=== PATIENT | female | born 1995 | race American Indian/Alaskan Native ===

== ENCOUNTER 2017-02-06 11:56 | Emergency (ER) | payer MEDICAID ==
[2017-02-06 12:10] VITALS: BP 122/65
[2017-02-06 13:00] LABS: Bacteria,Urine 1+ /HPF (Negative); Bilirubin,Urine NEG (Negative); Blood,Urine NEG (Negative); Ketones,Urine 80 mg/dL (Negative); Leukocyte Esterase,Urine SM (Negative); Mucus,Urine 3+ /HPF; Nitrite,Urine NEG (Negative)
[2017-02-06] MEDS ORDERED: NACL 0.9% 1000 ML 1,000 ML IV ONE ×2 (13:26→13:27)
--- NOTE | 2017-02-06 13:35 | Emergency Department Report ---
HPI - General Chief Complaint: Nausea/Vomiting/Diarrhea Time Seen by Provider: 02/06/17 13:26 - HPI HPI: This is a 21-year-old Afro-[place] female presents to the emergency department with complaint of some nausea and vomiting while . The patient is about 16 weeks based on her last menstrual cycle but has not yet seen her DATA SOLUTIONS ARCHITECT, [facility]. She's been having some nausea and has been "spitting up " over the past 2 weeks. Over the past 1-2 days she has been feeling dizzy and dehydrated. She otherwise denies any past medical history. She is not taken anything for symptoms prior to presentation. She thinks that the taste of water is also causing her to be unable to keep it down and she has had some Powerade today and has been able to keep that down this far. She denies any abdominal pain, pelvic pain, vaginal bleeding or discharge, dysuria, fever. ED Past Medical Hx - Past Medical History Hx Congestive Heart Failure: No Hx Diabetes: No Hx Asthma: No Hx COPD: No - Social History Smoking Status: Never Smoker Substance Use Type: None - Medications Home Medications: Home Medications Medication Instructions Recorded Confirmed Last Taken Type Vit No.130/Iron/FA 1 each PO QDAY #30 tablet 02/06/17 Unknown Rx [ Tablet] ED Review of Systems ROS: Stated complaint: 6-8 WKS PREG/DIZZY/DEHYDRATED Other details as noted in HPI Comment: All other systems reviewed and negative Constitutional: denies: chills, fever Eyes: denies: eye pain, eye discharge, vision change ENT: denies: ear pain, throat pain Respiratory: denies: cough, shortness of breath, wheezing Cardiovascular: denies: chest pain, palpitations Gastrointestinal: nausea, vomiting Genitourinary: denies: urgency, dysuria, discharge Musculoskeletal: denies: back pain, joint swelling, arthralgia Skin: denies: rash, lesions Neurological: other (dizzy). denies: headache, weakness, paresthesias Physical Exam - Physical Exam Vital Signs: Vital Signs 02/06/17 12:06 Temperature 98.5 F Pulse Rate 72 Respiratory 16 Rate Blood Pressure 122/65 O2 Sat by Pulse 100 Oximetry Physical Exam: GENERAL: The patient is well-developed well-nourished. HEENT: Normocephalic. Atraumatic. Extraocular motions are intact. Patient has moist mucous membranes. Pupils equal reactive to light laterally. NECK: Supple. Trachea is midline. CHEST/LUNGS: Clear to auscultation. There is no respiratory distress noted. HEART/CARDIOVASCULAR: Regular. There is no tachycardia. There is no gallop rub or murmur. ABDOMEN: Abdomen is soft, nontender. Patient has normal bowel sounds. There is no abdominal distention. SKIN: Skin is warm and dry. NEURO: The patient is awake, alert, and oriented. The patient is cooperative. The patient has no focal neurologic deficits. The patient has normal speech. MUSCULOSKELETAL: There is no tenderness or deformity. There is no limitation range of motion. There is no evidence of acute injury. ED Course Vital Signs 02/06/17 12:06 Temperature 98.5 F Pulse Rate 72 Respiratory 16 Rate Blood Pressure 122/65 O2 Sat by Pulse 100 Oximetry ED Medical Decision Making - Lab Data Result diagrams: 02/06/17 13:41 02/06/17 13:41 - Medical Decision Making 21-year-old female presents to the emergency department with a two-week history of spitting up which she describes as nausea and vomiting and more recently some dizziness and dehydration. She has about 6-8 weeks based on her last menstrual cycle. As the patient does not have any abdominal pain, back pain, vaginal bleeding or any other genitourinary signs, I did not feel that we needed to do a ultrasound at this time. It is too early for heart tones. Vital signs stable throughout her ED course. Her labs are mostly unremarkable. There was tender BCs and the urine but there is also 9 epithelial cells and the patient does not have any complaints of dysuria and it is low likelihood that the patient has a UTI. She was able to keep down some power aid but she did have 80 ketones in the urine so she was given 2 units of IV fluid. Upon reevaluation she is feeling greatly improved. No focal, motor or sensory deficits. Cranial nerves are intact. She was able to keep down crackers. She was encouraged to follow-up with [facility] SOLUTIONS ARCHITECT in the next few days and return to the ER with any worsening of her symptoms or any acute distress. - Differential Diagnosis , hyperemesis gravidarum, food poisoning, viral syndrome Critical Care Time: No Critical care attestation.: If time is entered above; I have spent that time in minutes in the direct care of this critically ill patient, excluding procedure time. ED Disposition Clinical Impression: Hyperemesis gravidarum, Dehydration Qualifiers: Weeks of gestation: less than 8 weeks Qualified Code(s): Z3A.01 - Less than 8 weeks gestation of Disposition: - TO HOME OR SELFCARE Is pt being admited?: No Condition: Stable Instructions: (ED), Hyperemesis Gravidarum (ED), Dehydration (ED) Additional Instructions: Please follow-up with your DATA SOLUTIONS ARCHITECT in the next few days. Increase your oral rehydration. Return to the emergency department with any worsening of your symptoms, vaginal bleeding, abdominal discomfort, or any acute distress. Prescriptions: Vit No.130/Iron/FA [ Tablet] 1 each PO QDAY #30 tablet Referrals: [facility] [Primary Care Provider] - 3-5 Days [facility] [Provider Group] - 3-5 Days Time of Disposition: 15:05
[2017-02-06 14:09] LABS: Eosinophils % (Auto) 1.7 % (0.0-4.3); Hematocrit 35.4 % (30.3-42.9); Hemoglobin 11.7 gm/dl (10.1-14.3); Mean Corpuscular HGB Conc 33 % (30-34); Mean Corpuscular Hemoglobin 30 pg (28-32); Mean Corpuscular Volume 91 fl (79-97); Platelet Count 200 K/mm3 (140-440); Red Blood Count 3.87 M/mm3 (3.65-5.03); Red Cell Distribution Width 15.9 % (13.2-15.2); White Blood Count 7.8 K/mm3 (4.5-11.0)
[2017-02-06 14:14] LABS: Anion Gap 18 mmol/L; Blood Urea Nitrogen 11 mg/dL (7-17); Carbon Dioxide 24 mmol/L (22-30); Chloride 98.1 mmol/L (98-107); Glucose 91 mg/dL (65-100); Potassium 3.6 mmol/L (3.6-5.0); Sodium 136 mmol/L (137-145)
[2017-02-06] MEDS ORDERED: MACROBID PO ONE (15:00)
== END 2017-02-06 15:29 | disposition home or self-care (01) ==
LOC: ED 11:56
DX: O21.0 Mild hyperemesis gravidarum (principal); O26.891 Other specified pregnancy related conditions, first trimester; E86.0 Dehydration; Z3A.01 Less than 8 weeks gestation of pregnancy
CPT/HCPCS: 36415; 80048; 81001; 81025; 85025; 96360; 99283; J7030

== ENCOUNTER 2017-05-30 05:49 | Inpatient (IN) | payer MEDICAID ==
[2017-05-30] MEDS ORDERED: LACTATED RINGERS 1,000 ML ONE (06:22)
[2017-05-30] MEDS ORDERED: LACTATED RINGERS 1,000 ML IV ONE (06:43)
[2017-05-30 07:01] LABS: Bilirubin,Urine NEG (Negative); Blood,Urine SM (Negative); Ketones,Urine 80 mg/dL (Negative); Leukocyte Esterase,Urine NEG (Negative); Mucus,Urine 3+ /HPF; Nitrite,Urine NEG (Negative)
[2017-05-30] MEDS ORDERED: TYLENOL PO PRN ×2 (07:49→08:02)
[2017-05-30 07:52] LABS: Hematocrit 29.1 % (30.3-42.9); Hemoglobin 9.4 gm/dl (10.1-14.3); Mean Corpuscular HGB Conc 32 % (30-34); Mean Corpuscular Hemoglobin 30 pg (28-32); Mean Corpuscular Volume 92 fl (79-97); Platelet Count 261 K/mm3 (140-440); Red Blood Count 3.15 M/mm3 (3.65-5.03); Red Cell Distribution Width 13.5 % (13.2-15.2)
--- NOTE | 2017-05-30 07:55 | History and Physical Report ---
History of Present Illness Date of examination: 05/30/17 Chief complaint: Fever and chills Painful contractions History of present illness: 21-year-old at 24+ weeks presents with above complaints and issues, she is a [facility] patient. Essential history appears to be patient with painful contractions for 3-4 weeks. She went to [place] [facility] last night she was worked up per patient, she had ultrasounds and lab tests. She was discharged after being informed she was not in labor. She presents here with similar complaints but now has fever, cough, and tachycardia. Patient claims she did not inform them these other complaints at [place]. In triage, her temp is 102 and tachycardia to 102. 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 denies: smoking, alcohol abuse, prescription drug abuse, IV drug use - Obstetrical History Expected Date of Delivery: 09/13/17 Actual Gestation: 24 Week(s) 6 Day(s) : 2 Para: 1 Hx # Term Pregnancies: 0 Number of Pregnancies: 1 Medications and Allergies Allergies Allergy/AdvReac Type Severity Reaction Status Date / Time No Known Allergies Allergy Verified 02/06/17 12:05 Home Medications Medication Instructions Recorded Confirmed Last Taken Type Vit No.130/Iron/Folic 1 each PO QDAY #30 tablet 02/06/17 Unknown Rx [ Tablet] Review of Systems Constitutional: fever, chills, weakness, malaise, lethargy, no weight gain, no night sweats, no chronic headaches Eyes: no blurred vision, no diplopia, no photophobia Cardiovascular: no chest pain, no orthopnea, no syncope, no lightheadedness, no shortness of breath, no dyspnea on exertion, no paroxysmal nocturnal dyspnea, no high blood pressure Respiratory: cough Gastrointestinal: no nausea, no vomiting Genitourinary: contractions, no vaginal bleeding, no leakage of fluid - Vital Signs Vital signs: Vital Signs Pulse BP 92 H 142/60 05/30/17 06:12 05/30/17 06:12 Temp Pulse Resp BP Pulse Ox 102.4 F H 92 H 20 142/60 05/30/17 07:23 05/30/17 06:29 05/30/17 07:23 05/30/17 06:29 - Physical Exam Cardiovascular: Regular rate, Normal S1, Normal S2 Lungs: Positive: Clear to auscultation, Normal air movement Abdomen: Positive: normal appearance, soft, tenderness (mild tenderness at left lower quadrant, no CVA tenderness). Negative: distention, guarding, mass Genitourinary (Female): Positive: normal external genitalia (by CNM) Uterus: Positive: enlarged. Negative: tender Adnexa: both: normal - Obstetrical FHR: category 2 ( tachycardia) Cervical Dilatation: 1 Results Result Diagrams: 05/30/17 07:40 05/30/17 07:40 All other labs normal. Assessment and Plan A: 21-year-old at 24+6 weeks with fever -Cat 1 tracing Issues -Fever and cough ?Flu - tachycardia -Hx of PTD (Non compliant w/ [facility] visits) -Recent w/u at [facility] per patient P: -Admit -Patient was seen at [place] [facility] last night -Start magnesium per protocol, Hold steroids for now until obtain records from [facility] -If records not available, we'll obtain workup including cervical length here -She gives an oral history of her daughter being sick for the past week, she did not get flu vaccine. Start Tamiflu at this time. Hold antibiotics for now, await culture -Continue antipyretics -Consult placed to [facility] for history of delivery -Contact precautions for now - Patient Problems (1) 24 weeks gestation of Current Visit: Yes Status: Acute (2) tachycardia Current Visit: Yes Status: Acute (3) Maternal pyrexia, antepartum Current Visit: Yes Status: Acute (4) Hx of delivery, currently Current Visit: Yes Status: Acute
[2017-05-30] MEDS: TYLENOL PO PRN ×2 (07:59→20:04)
[2017-05-30] MEDS ORDERED: SENOKOT S PO PRN (08:02)
[2017-05-30] MEDS ORDERED: TUCKS PAD TP PRN (08:02)
[2017-05-30] MEDS ORDERED: MYLICON PO PRN (08:02)
[2017-05-30] MEDS ORDERED: DEEP SEA NS PRN (08:02)
[2017-05-30] MEDS ORDERED: COLACE PO PRN (08:02)
[2017-05-30 08:06] LABS: Alanine Aminotransferase 6 units/L (7-56); Albumin 2.8 g/dL (3.9-5); Albumin/Globulin Ratio 0.9 %; Alkaline Phosphatase 94 units/L (35-129); Anion Gap 18 mmol/L; BUN/Creatinine Ratio 15; Blood Urea Nitrogen 6 mg/dL (7-17); Calcium 7.8 mg/dL (8.4-10.2); Carbon Dioxide 22 mmol/L (22-30); Chloride 96.9 mmol/L (98-107); Glucose 79 mg/dL (65-100); Potassium 3.1 mmol/L (3.6-5.0); Sodium 134 mmol/L (137-145); Total Protein 5.8 g/dL (6.3-8.2)
[2017-05-30] MEDS ORDERED: MAGNESIUM SULFATE 4GM/100ML 4 GM/100 ML BAG IV ONE (08:07)
[2017-05-30 08:08] LABS: White Blood Count 20.2 K/mm3 (4.5-11.0)
[2017-05-30 08:10] LABS: Urine Drugs of Abuse Note Disclamer
--- NOTE | 2017-05-30 08:24 | Event Note ---
Date: 05/30/17 Despite call to [facility], unable to obtain records of workup as it appears all Departments closed. Plan at this point is to repeat all testing including ultrasounds and lab workup.
--- NOTE | 2017-05-30 08:31 | Event Note ---
Date: 05/30/17 Just spoke with [employer] intern physician at [phone]. She was seen at their facility. She had ultrasound including cervical length which was ~ 3.0, she had a fibronectin which was negative and SHANTHI of 16. She has graciously agreed to fax all results to me. Plan at this point is to discontinue present orders.
[2017-05-30] MEDS: LACTATED RINGERS 1,000 ML IV SCH ×2 (08:41→13:02)
[2017-05-30] MEDS ORDERED: MAGNESIUM SULFATE 40GM/1000ML 40 GM/1,000 ML BAG IV NR (09:00)
[2017-05-30] MEDS ORDERED: LACTATED RINGERS 1,000 ML IV SCH (09:00)
[2017-05-30 09:10] LABS: Blastocytes % (Manual) 0 %
[2017-05-30 09:11] LABS: Basophils % (Manual) 0 % (0.0-1.8); Diff Status Complete; Eosinophils % (Manual) 0 % (0.0-4.3); RBC Morphology Normal
[2017-05-30] MEDS: TAMIFLU PO SCH ×2 (09:39→22:44)
--- NOTE | 2017-05-30 11:15 | Consultation ---
History of Present Illness Consult date: 05/30/17 Requesting physician: ASHLEIGH CARTWRIGHT Reason for consult: contractions History of present illness: Thank you for the consultation. As you are aware, this is a 21 year-old para 0111 at 24 weeks 4 days gestation for whom a perinatology consultation was requested for fever of unknown etiology. CURRENT PRESENTATION: The patient indicates that she noted fever, chills, body aches and a mild headache of unknown etiology earlier yesterday. She also admits to cough or body aches. The patient did not the influenza vaccine. She denies vaginal bleeding or leakage of fluid. She describes No contractions. Uterine tenderness was not appreciated on exam. She denied contractions or vaginal bleeding. tachycardia was noted on ultrasound which has resolved. Patient had fever and contractions on presentation which have resolved. PAST OBSTETRICAL HISTORY * SAB x 1 * 2015: at 35 weeks. BW: 5 pounds 6 oz * See reports in patients chart. PAST MEDICAL HISTORY * Patient denies hypertension, diabetes or asthma. PAST SURGICAL HISTORY Negative PHYSICAL EXAMINATION: See complete documentation in patients medical record. CURRENT TEMPERATURE: 98.9 Abdomen soft, non-tender and non-distended. NO rebound Fundal height consistent with 24 weeks gestation NST Reactive, 160 - 180 BPM, minimal decelerations, mild contractions ADMISSION LAB TESTS: See notes in patients chart. FFN test. Negative. [facility] ULTRASOUND: See notes in patients chart * Pending. 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: chlamydia, gonorrhea, hepatitis B, hepatitis C, HIV, syphilis - Obstetrical History : 2 Medications and Allergies Allergies Allergy/AdvReac Type Severity Reaction Status Date / Time No Known Allergies Allergy Verified 02/06/17 12:05 Home Medications Medication Instructions Recorded Confirmed Last Taken Type Vit No.130/Iron/Folic 1 each PO QDAY #30 tablet 02/06/17 Unknown Rx [ Tablet] Active Meds: Active Medications Acetaminophen (Tylenol) 1,000 mg PO Q4H PRN PRN Reason: Pain, Mild (1-3) Last Admin: 05/30/17 07:59 Dose: 1,000 mg Acetaminophen (Tylenol) 650 mg PO Q4H PRN PRN Reason: Pain MILD(1-3)/Fever >100.5/PANCHAL Docusate Sodium (Colace) 100 mg PO Q12H PRN PRN Reason: Constipation Lactated Ringer's (Lactated Ringers) 1,000 mls @ 125 mls/hr IV DIRECT MARA Last Admin: 05/30/17 08:41 Dose: 125 mls/hr Lactated Ringer's (Lactated Ringers) 1,000 mls @ 75 mls/hr IV DIRECT MARA Magnesium Sulfate (Magnesium Sulfate 40gm/1000ml) 40 gm in 1,000 mls @ 50 mls/ hr IV TITR NR PRN Reason: 2 GM/HR Stop: 05/30/17 23:00 Last Admin: 05/30/17 08:56 Dose: 2 gm/hr, 50 mls/hr Multivitamins/Iron/Calcium ( Vitamin) 1 each PO QDAY MARA Ondansetron HCl (Zofran) 4 mg IV Q6H PRN PRN Reason: Nausea And Vomiting Oseltamivir Phosphate (Tamiflu) 75 mg PO BID MARA Stop: 06/03/17 22:01 Last Admin: 05/30/17 09:39 Dose: 75 mg Senna/Docusate Sodium (Senokot S) 2 tab PO Q12H PRN PRN Reason: Laxative Effect Simethicone (Mylicon) 80 mg PO Q6H PRN PRN Reason: Gas pain Sodium Chloride (Deep Sea) 2 spray NS Q4H PRN PRN Reason: Congestion Witch Destiny/Glycerin (Tucks Pad) 1 each TP PRN PRN PRN Reason: Hemorrhoids - Vital Signs Vital signs: Vital Signs Pulse BP 92 H 142/60 05/30/17 06:12 05/30/17 06:12 Temp Pulse Resp BP Pulse Ox 98.6 F 92 H 18 109/53 98 05/30/17 11:03 05/30/17 11:14 05/30/17 11:03 05/30/17 10:59 05/30/17 11:14 Results Result Diagrams: 05/30/17 07:40 05/30/17 07:40 Abnormal lab results 05/30/17 05/30/17 Range/Units 07:40 07:40 WBC 20.2 H (4.5-11.0) K/mm3 RBC 3.15 L (3.65-5.03) M/mm3 Hgb 9.4 L (10.1-14.3) gm/dl Hct 29.1 L (30.3-42.9) % Seg Neuts % (Manual) 94.0 H (40.0-70.0) % Lymphocytes % (Manual) 2.0 L (13.4-35.0) % Seg Neutrophils # Man 19.0 H (1.8-7.7) K/mm3 Lymphocytes # (Manual) 0.4 L (1.2-5.4) K/mm3 Sodium 134 L (137-145) mmol/L Potassium 3.1 L (3.6-5.0) mmol/L Chloride 96.9 L (98-107) mmol/L BUN 6 L (7-17) mg/dL Creatinine 0.4 L (0.7-1.2) mg/dL Calcium 7.8 L (8.4-10.2) mg/dL ALT 6 L (7-56) units/L Total Protein 5.8 L (6.3-8.2) g/dL Albumin 2.8 L (3.9-5) g/dL All other labs normal. Assessment and Plan ASSESSMENT * This is a 21 year old para 0111 at 24+ weeks noted to have fever of unknown etiology, contractions and transient fever. * Headache, Body ache and Chills of unknown etiology possibly due to influenza. * Rule out labor. * Doubt chorioamnionitis. * tachycardia due to maternal fever. Category 1 tracing * Rule out pneumonia vs. Viral syndrome (influenza) SUGGESTED MANAGEMENT PLAN * Agree with initial admission and observation as necessary. * Obtain a CXR to rule out pulmonary edema vs pericarditis. * Agree with Oseltamivir (Tamiflu) at a dosage of 75 mg~twice~daily x 5 days. * Obtain an ultrasound evaluated growth and SHANTHI. * Consider infectious disease consultation (if indicated). * Obtain an echocardiogram to evaluate history of cardiomyopathy. * No clear indication for amniocentesis given current clinical findings. * Agree with flu swab (pending). * Follow-up CBC and blood culture. * Biophysical profile is within normal limits. * Continue FHR monitoring to evaluate course of tachycardia. * Delivery for obstetrical indications or progressive labor. * Tylenol PRN. * Agree with Oseltamivir (Tamiflu) at a dosage of 75 mg~twice~daily x 5 days. * Agree with maintenance of intravenous access for maternal hydration while hospitalized. Thank you for allowing us to participate in the care of this patient. We look forward to the opportunity to assist in her continued management. If you have any questions, I may be reached at [phone].
--- NOTE | 2017-05-30 14:20 | Ultrasound Report ---
COMPLETE OB ULTRASOUND: labor. Gestation: [place] Position: Cephalic SHANTHI = 16.4 cm Placenta: Posterior Placental Grade: 1 Heart Rate: 141 BPM Cervical length: 3 cm (Normal > 3 cm) NEUROANATOMY VISUALIZED: Choroid Plexus Cisterna Magnum Cerebellum Lateral Ventricle ANATOMY VISUALIZED: Stomach Kidneys Bladder Diaphragm 4 Chamber Heart Heart 3 Vessel Cord Abd. Cord Insert SPINE VISUALIZED: Longitudinal Transverse Limited spine due to position The following are not demonstrated due to maternal body habitus or lie: AP spine BPD: 6.2 cm = 25 w 2 d HC: 22.9 cm = 25 w 0 d AC: 19.4 cm = 24 w 1 d FL: 4.6 cm = 25 w 2 d HC/AC Ratio: 1.2 Cephalic Index: 79.9 Estimated Weight: 725 grams Clinical age = 24 w 6 d EDC: 09/13/17 US Gest. Age = 25 w 0 d EDC: 09/12/17
--- NOTE | 2017-05-30 14:21 | Ultrasound Report ---
BIOPHYSICAL PROFILE: Premature labor. 2 - breathing movements 2 - movements 2 - posture and tone 2 - Qualitative amniotic fluid volume 8 - TOTAL SCORE OF POSSIBLE 8 Heart Rate (bpm) 138 Estimated age 24 weeks 6 days.
--- NOTE | 2017-05-30 14:49 | XRay Report ---
PORTABLE CHEST: SOB An AP portable view of the chest demonstrates a normal cardiac contour considering the limits of this technique. The lungs are clear with no evidence of infiltrate, fluid or failure. IMPRESSION: Normal portable chest.
--- NOTE | 2017-05-30 15:28 | Event Note ---
Date: 05/30/17 Saw patient in triage around 7:00 AM this morning as nurse states patient is having contractions at 24 weeks, 6 days gestation. Patient states she has been having contractions for several days. Patient states she was seen at [place] last night and was discharged because she was not in labor. She was checked and had a transvaginal US done at [place] last night. On exam this AM, cervix was 1/50/high/posterior. No vaginal bleeding or leaking of fluid seen. Patient reported chills and body aches and cough. She states her child has had similar symptoms. She states she vomited a few times a few days ago. No diarrhea. Due to fever, chills, and contractions, labs and IV fluid bolus ordered and Dr. Bryan notified to come and see the patient.
[2017-05-30] MEDS: ZOFRAN IV PRN (19:27)
--- NOTE | 2017-05-31 09:32 | Progress Note ---
Assessment and Plan A: 21-year-old at 25 weeks with fever now resolved -Cat 1 tracing Issues -Fever and cough ?Flu -Last temp spike 102.4 at 07:30 on 05/30/17 - tachycardia - resolved -Hx of PTD (Non compliant w/ [facility] visits) -BPP 02/11 on 05/30/17 P: -MFM notes reviewed, thanks -Continue present care -Await culture results -Possible discharge in ~ 24-48 - Patient Problems (1) 25 weeks gestation of Current Visit: Yes Status: Acute (2) 24 weeks gestation of Current Visit: Yes Status: Inactive (3) tachycardia Current Visit: Yes Status: Acute (4) Maternal pyrexia, antepartum Current Visit: Yes Status: Acute (5) Hx of delivery, currently Current Visit: Yes Status: Acute Subjective - Subjective Date of service: 05/31/17 Principal diagnosis: IUP @ 25 wks, Fever susp viral syndrome Interval history: Patient seen and examined, doing well. No issues overnight. She is lying supine in bed with her boyfriend appears in no distress. No other complaints She has been afebrile since ~ 7:30 AM yesterday No vaginal bleeding, no loss of fluid plus movement tracing now category 1 Patient reports: new complaints, movement normal, no loss of fluid, no vaginal bleeding, no contractions Objective - Vital Signs Vital Signs: Vital Signs - 12hr 05/30/17 05/30/17 05/30/17 21:32 21:37 21:42 Temperature Pulse Rate 84 83 83 Respiratory Rate Blood Pressure Blood Pressure [Left] O2 Sat by Pulse 99 98 99 Oximetry 05/30/17 05/30/17 05/30/17 21:47 22:40 22:45 Temperature Pulse Rate 78 88 80 Respiratory Rate Blood Pressure Blood Pressure [Left] O2 Sat by Pulse 98 99 98 Oximetry 05/31/17 05/31/17 05/31/17 00:20 01:19 02:19 Temperature Pulse Rate 75 75 75 Respiratory Rate Blood Pressure 91/48 104/51 98/51 Blood Pressure [Left] O2 Sat by Pulse Oximetry 05/31/17 05/31/17 05/31/17 03:19 04:19 05:19 Temperature Pulse Rate 73 78 74 Respiratory Rate Blood Pressure 94/51 91/50 97/53 Blood Pressure [Left] O2 Sat by Pulse Oximetry 05/31/17 05/31/17 05/31/17 05:45 08:46 08:47 Temperature 97.3 F L 98.1 F Pulse Rate 82 82 Respiratory 16 16 Rate Blood Pressure 103/58 Blood Pressure 103/58 [Left] O2 Sat by Pulse 99 Oximetry 05/31/17 05/31/17 05/31/17 08:54 08:59 09:04 Temperature Pulse Rate 83 85 86 Respiratory Rate Blood Pressure Blood Pressure [Left] O2 Sat by Pulse 98 98 97 Oximetry 05/31/17 05/31/17 05/31/17 09:09 09:14 09:19 Temperature Pulse Rate 83 90 85 Respiratory Rate Blood Pressure Blood Pressure [Left] O2 Sat by Pulse 99 99 98 Oximetry - Exam Abdomen: Absent: tenderness Uterus: Absent: tenderness FHR: category 1 - Labs Labs: Abnormal Labs 05/30/17 05/30/17 05/30/17 07:40 07:40 12:35 WBC 20.2 H RBC 3.15 L Hgb 9.4 L Hct 29.1 L Seg Neuts % (Manual) 94.0 H Lymphocytes % (Manual) 2.0 L Seg Neutrophils # Man 19.0 H Lymphocytes # (Manual) 0.4 L Sodium 134 L Potassium 3.1 L Chloride 96.9 L BUN 6 L Creatinine 0.4 L Calcium 7.8 L Magnesium 4.30 H ALT 6 L Total Protein 5.8 L Albumin 2.8 L 05/30/17 05/31/17 19:02 00:32 WBC RBC Hgb Hct Seg Neuts % (Manual) Lymphocytes % (Manual) Seg Neutrophils # Man Lymphocytes # (Manual) Sodium Potassium Chloride BUN Creatinine Calcium Magnesium 5.20 H 5.20 H ALT Total Protein Albumin Laboratory Results - last 24 hr 05/30/17 05/30/17 05/30/17 09:18 12:35 19:02 Magnesium 4.30 H 5.20 H Blood Type O POSITIVE Antibody Screen Negative 05/31/17 00:32 Magnesium 5.20 H Blood Type Antibody Screen
[2017-05-31] MEDS: PRENATAL VITAMIN PO SCH (09:59)
[2017-05-31] MEDS: TAMIFLU PO SCH ×2 (09:59→22:05)
[2017-05-31 10:11] LABS: Hematocrit 29.3 % (30.3-42.9); Hemoglobin 9.9 gm/dl (10.1-14.3); Mean Corpuscular HGB Conc 34 % (30-34); Mean Corpuscular Hemoglobin 31 pg (28-32); Mean Corpuscular Volume 93 fl (79-97); Platelet Count 292 K/mm3 (140-440); Red Blood Count 3.16 M/mm3 (3.65-5.03); Red Cell Distribution Width 13.2 % (13.2-15.2)
[2017-05-31] MEDS: ZOFRAN IV PRN (17:01)
[2017-05-31] MEDS: TYLENOL PO PRN (20:15)
[2017-06-01 07:35] VITALS: BP 109/65
--- NOTE | 2017-06-01 09:22 | Progress Note ---
Assessment and Plan A: 21-year-old at 25+1 weeks with fever now resolved -Cat 1 tracing\ -Urine culture negative for growth per Lab this AM Issues -Fever and cough ?Flu -Last temp spike 102.4 at 07:30 on 05/30/17 - tachycardia - resolved -Hx of PTD (Non compliant w/ [facility] visits) -BPP 8/8 on 05/30/17 P: -Discharged home -Advised to complete Tamiflu -Follow up with MFM as recommended - Patient Problems (1) 25 weeks gestation of Current Visit: Yes Status: Acute (2) tachycardia Current Visit: Yes Status: Acute (3) Maternal pyrexia, antepartum Current Visit: Yes Status: Acute (4) Hx of delivery, currently Current Visit: Yes Status: Acute Subjective - Subjective Date of service: 06/01/17 Principal diagnosis: IUP @ 25+1 wks, Fever susp viral syndrome Interval history: Patient seen and examined, doing well. No issues overnight. No other complaints She has been afebrile x ~ 48hrs No vaginal bleeding, no loss of fluid plus movement tracing now category 1 Patient reports: new complaints, movement normal, no loss of fluid, no vaginal bleeding, no contractions Objective - Vital Signs Vital Signs: Vital Signs - 12hr 05/31/17 05/31/17 05/31/17 21:37 21:42 21:47 Temperature Pulse Rate 85 75 80 Respiratory Rate Blood Pressure Blood Pressure [Left] O2 Sat by Pulse 98 98 98 Oximetry 05/31/17 05/31/17 05/31/17 21:52 21:57 22:02 Temperature Pulse Rate 76 75 80 Respiratory Rate Blood Pressure Blood Pressure [Left] O2 Sat by Pulse 98 97 99 Oximetry 05/31/17 05/31/17 05/31/17 22:07 22:12 22:17 Temperature Pulse Rate 72 95 H 71 Respiratory Rate Blood Pressure Blood Pressure [Left] O2 Sat by Pulse 99 98 99 Oximetry 05/31/17 05/31/17 05/31/17 22:22 22:27 22:32 Temperature Pulse Rate 71 69 67 Respiratory Rate Blood Pressure Blood Pressure [Left] O2 Sat by Pulse 98 99 98 Oximetry 05/31/17 05/31/17 05/31/17 22:37 22:42 22:47 Temperature Pulse Rate 89 83 71 Respiratory Rate Blood Pressure Blood Pressure [Left] O2 Sat by Pulse 99 97 98 Oximetry 05/31/17 05/31/17 05/31/17 23:29 23:34 23:39 Temperature Pulse Rate 63 69 74 Respiratory Rate Blood Pressure Blood Pressure [Left] O2 Sat by Pulse 95 98 97 Oximetry 05/31/17 05/31/17 05/31/17 23:44 23:49 23:54 Temperature Pulse Rate 83 74 85 Respiratory Rate Blood Pressure Blood Pressure [Left] O2 Sat by Pulse 97 97 97 Oximetry 05/31/17 06/01/17 06/01/17 23:59 00:04 00:09 Temperature Pulse Rate 76 70 73 Respiratory Rate Blood Pressure Blood Pressure [Left] O2 Sat by Pulse 96 98 98 Oximetry 06/01/17 06/01/17 06/01/17 00:14 00:19 00:24 Temperature Pulse Rate 73 73 74 Respiratory Rate Blood Pressure Blood Pressure [Left] O2 Sat by Pulse 98 97 97 Oximetry 06/01/17 06/01/17 06/01/17 00:29 00:34 07:33 Temperature 97.3 F L Pulse Rate 72 74 73 Respiratory 20 Rate Blood Pressure Blood Pressure 109/65 [Left] O2 Sat by Pulse 97 97 98 Oximetry 06/01/17 06/01/17 06/01/17 07:37 07:41 07:43 Temperature Pulse Rate 78 69 82 Respiratory Rate Blood Pressure 109/65 Blood Pressure [Left] O2 Sat by Pulse 100 99 94 Oximetry 06/01/17 06/01/17 06/01/17 07:47 07:52 07:57 Temperature Pulse Rate 81 76 77 Respiratory Rate Blood Pressure Blood Pressure [Left] O2 Sat by Pulse 100 99 99 Oximetry - Exam Abdomen: Present: normal appearance, soft. Absent: distention, tenderness, guarding, rigidity Uterus: Absent: tenderness - Labs Labs: Abnormal Labs 05/30/17 05/30/17 05/30/17 07:40 07:40 12:35 WBC 20.2 H RBC 3.15 L Hgb 9.4 L Hct 29.1 L Seg Neuts % (Manual) 94.0 H Lymphocytes % (Manual) 2.0 L Seg Neutrophils # Man 19.0 H Lymphocytes # (Manual) 0.4 L Sodium 134 L Potassium 3.1 L Chloride 96.9 L BUN 6 L Creatinine 0.4 L Calcium 7.8 L Magnesium 4.30 H ALT 6 L Total Protein 5.8 L Albumin 2.8 L 05/30/17 05/31/17 05/31/17 19:02 00:32 09:49 WBC 20.0 H RBC 3.16 L Hgb 9.9 L Hct 29.3 L Seg Neuts % (Manual) Lymphocytes % (Manual) Seg Neutrophils # Man Lymphocytes # (Manual) Sodium Potassium Chloride BUN Creatinine Calcium Magnesium 5.20 H 5.20 H ALT Total Protein Albumin Laboratory Results - last 24 hr 05/31/17 09:49 WBC 20.0 H RBC 3.16 L Hgb 9.9 L Hct 29.3 L MCV 93 MCH 31 MCHC 34 RDW 13.2 Plt Count 292
--- NOTE | 2017-06-01 09:26 | Discharge Summary ---
Providers - Providers Date of Admission: 05/30/17 08:03 Date of discharge: 06/01/17 Attending physician: RUDY OLMEDO MD 05/30/17 08:02 Consult to Physician [CONS] Routine Consulting Provider: RIO BAI I Reason For Exam: 24 weeks with flu like symptoms, r/o PTL Place consult to:: MEG Notified:: HANG AT ANSWERING SERVICE Phone number called:: [phone] Was contact made?: Yes If yes, spoke with:: HANG Time called:: 08:30 Primary care physician: RUDY OLMEDO MD Hospitalization Reason for admission: IUP - , other (viral syndrome) Discharge diagnosis: other (IUP at 25+1 weeks with viral syndrome) Hospital course: 21-year-old admitted at 24+6 weeks with fever, chills, cough and painful contractions. she is a [facility] patient. Essential history appears to be patient with painful contractions for 3-4 weeks. She went to [place] last night she was worked up per patient, she had ultrasounds and lab tests. She was discharged after being informed she was not in labor. She presents here with similar complaints but now has fever, cough, and tachycardia. Patient claims she did not inform them of these other complaints at [place]. In triage, her temp is 102 and tachycardia to 102. She was checked by the public employment mediator and is said to be 1 cm Spoke with [place] manager internal physician at [phone]. She was seen at their facility. She had ultrasound including cervical length which was ~ 3.0, she had a fibronectin which was negative and SHANTHI of 16. She was admitted to the floor, cultures are obtained. She was started on Tamiflu; MFM consult requested MFM consult below: ASSESSMENT * This is a 21 year old para 0111 at 24+ weeks noted to have fever of unknown etiology, contractions and transient fever. * Headache, Body ache and Chills of unknown etiology possibly due to influenza. * Rule out labor. * Doubt chorioamnionitis. * tachycardia due to maternal fever. Category 1 tracing * Rule out pneumonia vs. Viral syndrome (influenza) SUGGESTED MANAGEMENT PLAN * Agree with initial admission and observation as necessary. * Obtain a CXR to rule out pulmonary edema vs pericarditis. * Agree with Oseltamivir (Tamiflu) at a dosage of 75 mg~twice~daily x 5 days. * Obtain an ultrasound evaluated growth and SHANTHI. * Consider infectious disease consultation (if indicated). * Obtain an echocardiogram to evaluate history of cardiomyopathy. * No clear indication for amniocentesis given current clinical findings. * Agree with flu swab (pending). * Follow-up CBC and blood culture. * Biophysical profile is within normal limits. * Continue FHR monitoring to evaluate course of tachycardia. * Delivery for obstetrical indications or progressive labor. * Tylenol PRN. * Agree with Oseltamivir (Tamiflu) at a dosage of 75 mg~twice~daily x 5 days. * Agree with maintenance of intravenous access for maternal hydration while hospitalized. All workup including chest x-ray and culture negative. Condition improved, BPP this morning 8 out of 8 He is discharged home in stable condition - Discharge Diagnoses (1) 25 weeks gestation of Status: Acute (2) tachycardia Status: Acute (3) Maternal pyrexia, antepartum Status: Acute (4) Hx of delivery, currently Status: Acute Plan - Discharge Medications Prescriptions: Acetaminophen 325 mg PO Q4-6H #30 tablet Oseltamivir [Tamiflu] 75 mg PO BID #8 cap - Provider Discharge Summary Activity: no sex for 6 weeks, no heavy lifting 4 weeks, no strenuous exercise Diet: routine Additional instructions: [] Smoking cessation referral if applicable(refer to patient education folder for contact #) [] Refer to [facility] Booklet Call your doctor immediately for: * Fever > 100.5 * Heavy vaginal bleeding ( >1 pad per hour) * Severe persistent headache * Shortness of breath * Reddened, hot, painful area to leg or breast * Drainage or odor from incision. * Keep incision clean and dry at all times and follow doctor's instructions regarding bathing/showering - Follow up plan Follow up: RUDY OLMEDO MD [Primary Care Provider] - 7 Days RIO BAI MD [Staff Physician] - 06/02/17
[2017-06-01] MEDS: PRENATAL VITAMIN PO SCH ×2 (10:15→10:17)
[2017-06-01] MEDS: TAMIFLU PO SCH (10:16)
--- NOTE | 2017-06-02 11:17 | Ultrasound Report ---
BIOPHYSICAL PROFILE: CAT 2 tracing 2 - breathing movements 2 - movements 2 - posture and tone 2 - Qualitative amniotic fluid volume 2 - TOTAL SCORE OF POSSIBLE 8 Heart Rate (bpm) 8 Estimated age 25 weeks.
== END 2017-06-01 10:19 | disposition home or self-care (01) | DRG 781 ==
LOC: TRG 05:49 → LD 08:03
PROVIDERS: ADMIT Obstetrics & Gynecology; ATTEND Obstetrics & Gynecology
DX: O98.512 Other viral diseases complicating pregnancy, second trimester (principal); Z3A.25 25 weeks gestation of pregnancy; J11.00 Influenza due to unidentified influenza virus with unspecified type of pneumonia
CPT/HCPCS: 36415; 71010; 76805; 76819; 80053; 80307; 81001; 83735; 85007; 85025; 85027; 86850; 86900; 86901; 87086; 87400; J2405; J3475; J7120

== ENCOUNTER 2019-08-08 10:19 | Inpatient (IN) | payer SELFPAY ==
--- NOTE | 2019-08-08 11:31 | History and Physical Report ---
History of Present Illness Date of examination: 08/08/19 Date of admission: 08/08/19 10:30 Chief complaint: SROM clear fluid History of present illness: Pt is a 24yo BF EDC 08/25/19; EGA 37 4/7 weeks presents to L&D complaining of SROM clear fluid @ 0900 followed by irregular contractions. She received care in [facility]. She had a previous C Section 2 years ago, and desires a TOLAC. records are available, but GBS is unknown. Past History Past Medical History: no pertinent history Past Surgical History: section Social history: no significant social history, single - Obstetrical History Expected Date of Delivery: 08/25/19 Actual Gestation: 37 Week(s) 4 Day(s) : 3 Medications and Allergies Allergies Allergy/AdvReac Type Severity Reaction Status Date / Time No Known Allergies Allergy Verified 02/06/17 12:05 Home Medications Medication Instructions Recorded Confirmed Last Taken Type Vit No.130/Iron/Folic 1 each PO QDAY #30 tablet 02/06/17 07/29/17 1 Day Ago Rx [ Tablet] ~05/29/17 Acetaminophen 325 mg PO Q4-6H #30 tablet 05/31/17 07/29/17 Unknown Rx Ibuprofen [Motrin] 800 mg PO Q8HR PRN #20 tablet 08/01/17 Unknown Rx oxyCODONE /ACETAMINOPHEN [Percocet 1 tab PO Q6HR PRN #14 tablet 08/01/17 Unknown Rx 5/325] Review of Systems All systems: negative - Vital Signs Vital signs: Vital Signs Pulse BP 65 130/76 08/08/19 11:01 08/08/19 11:01 Temp Pulse Resp BP Pulse Ox 98.3 F 65 16 130/76 08/08/19 11:12 08/08/19 11:01 08/08/19 11:12 08/08/19 11:01 - Physical Exam Abdomen: Positive: normal appearance, soft Vagina: Positive: normal moisture Uterus: Positive: enlarged - Obstetrical FHR: category 1 Uterine Contraction Monitor Mode: External Cervical Dilatation: 2 (per nurse) Cervical Effacement Percentage: 60 (per nurse) station: -1 Uterine Contraction Pattern: Irregular Uterine Tone Measurement Phase: Contraction Uterine Contraction Intensity: Mild Results All other labs normal. Assessment and Plan - Patient Problems (1) 37 weeks gestation of Onset Date: 08/08/19 Current Visit: Yes Status: Acute Plan to address problem: A: IUP @ 37 4/7 weeks in labor Previous C Section Unknown GBS P: Admit to L&D for expectant vaginal delivery Desires TOLAC IV Ampicillin Obtain records (2) Previous section Onset Date: 08/08/19 Current Visit: Yes Status: Acute
[2019-08-08] MEDS ORDERED: fentaNYL 100 MCG/2 ML INJ IV PRN (11:36)
[2019-08-08] MEDS ORDERED: ePHEDrine SULFATE 50 MG/1 ML INJ IV PRN ×2 (11:36→14:59)
[2019-08-08] MEDS ORDERED: TERBUTALINE 1 MG/1 ML INJ SUB-Q PRN (11:36)
[2019-08-08] MEDS ORDERED: BUTORPHANOL 2 MG/1 ML INJ IV PRN (11:36)
[2019-08-08] MEDS ORDERED: LIDOCAINE (2%) 20 MG/1 ML VIAL 20 ML MDV INFILTRATI ONE (11:36)
[2019-08-08] MEDS ORDERED: TERBUTALINE 1 MG/1 ML INJ IVP PRN (11:36)
[2019-08-08] MEDS ORDERED: AMPICILLIN/NS 2 GM/100 ML 2 GM/100 ML BAG IV ONE (11:36)
[2019-08-08] MEDS ORDERED: MINERAL OIL 30 ML ORAL LIQD PO PRN (11:36)
[2019-08-08] MEDS ORDERED: LACTATED RINGERS 1,000 ML IV SCH ×2 (12:00→16:00)
[2019-08-08] MEDS ORDERED: OXYTOCIN DRIP 30 UNITS/500 ML BAG IV SCH ×2 (12:00)
[2019-08-08] MEDS ORDERED: OXYTOCIN 20 UNIT/1000ML DRIP 20 UNITS/1,000 ML BAG IV SCH ×3 (12:00→17:00)
[2019-08-08 12:07] LABS: Hemoglobin 9.3 gm/dl (10.1-14.3); Mean Corpuscular HGB Conc 33 % (30-34); Mean Corpuscular Volume 84 fl (79-97); Platelet Count 244 K/mm3 (140-440); Red Blood Count 3.33 M/mm3 (3.65-5.03); Red Cell Distribution Width 14.8 % (13.2-15.2)
[2019-08-08 13:07] LABS: Amphetamine Screen,Urine PRESUMPTIVE NEGATIVE; Benzodiazepines Screen,Urine PRESUMPTIVE NEGATIVE; Cocaine Screen,Urine PRESUMPTIVE NEGATIVE; Methadone Screen,Urine PRESUMPTIVE NEGATIVE; Opiate Screen,Urine PRESUMPTIVE NEGATIVE
[2019-08-08 13:27] LABS: Cannabinoid Screen,Urine PRESUMPTIVE POSITIVE
[2019-08-08] MEDS ORDERED: NALOXONE 2 MG/2 ML INJ IV PRN (14:59)
[2019-08-08] MEDS ORDERED: fentaNYL-BUPIV 2 MCG/ML-0.125% 200 MCG/100 ML BAG EPIDURAL SCH (15:00)
--- NOTE | 2019-08-08 15:00 | Anesthesia Consultation ---
Anesthesia Consult and Med Hx Date of service: 08/08/19 - Airway Anesthetic Teeth Evaluation: Good ROM Head & Neck: Adequate Mental/Hyoid Distance: Adequate Mallampati Class: Class II Intubation Access Assessment: Good - Pulmonary Exam CTA: Yes - Cardiac Exam Cardiac Exam: RRR - Pre-Operative Health Status ASA Pre-Surgery Classification: ASA2, Emergency Proposed Anesthetic Plan: Epidural - Pulmonary Hx Asthma: No COPD: No Hx Pneumonia: No - Cardiovascular System Hx Hypertension: No - Central Nervous System Hx Seizures: No Hx Psychiatric Problems: No - Endocrine Hx Renal Disease: No Hx End Stage Renal Disease: No Hx Hypothyroidism: No Hx Hyperthyroidism: No - Hematic Hx Anemia: No Hx Sickle Cell Disease: No - Other Systems Hx Alcohol Use: No Hx Substance Use: Yes (positive for marijuana)
[2019-08-08] MEDS ORDERED: DEXMEDETOMIDINE 200 MCG/2 ML VIAL IV ONE (15:03)
[2019-08-08] MEDS ORDERED: AMPICILLIN/NS 1 GM/50 ML 1 GM/50 ML BAG IV SCH (15:38)
[2019-08-08] MEDS ORDERED: FAMOTIDINE 20 MG/2 ML INJ IV ONE (15:44)
[2019-08-08] MEDS ORDERED: BICITRA ORAL LIQD 30ML PO ONE (15:44)
[2019-08-08] MEDS ORDERED: METOCLOPRAMIDE 10 MG/2 ML INJ IV ONE (15:44)
[2019-08-08] MEDS ORDERED: BICITRA ORAL LIQD 30ML ONE (15:47)
[2019-08-08] MEDS ORDERED: ceFAZolin/Water 2 GM/20 ML 2 GM/20 ML SYRINGE IV NR (16:00)
--- NOTE | 2019-08-08 16:09 | Procedure Note ---
OB Delivery Note - Delivery Date of Delivery: 08/08/19 Surgeon: FERNY DIOR Estimated blood loss: 300cc - Vaginal Delivery presentation: vertex Delivery position: OA Intrapartum events: mult. late decelerations Delivery induction: none Delivery augmentation: rupture of membranes, pitocin Delivery monitor: external uterine, internal FHT Route of delivery: Delivery placenta: spontaneous Delivery cord: nuchal cord (x2), 3 umbilical vessels Episiotomy: none Delivery laceration: none Anesthesia: epidural Delivery comments: Infant delivered OA, after nuchal cord x 2, and placed on Mom's chest for [id number] bonding and delayed cord clamping, and handed to awaiting Ped/RT - Infant A at 1 minute: 7 at 5 minutes: 9 Infant Gender: Female (2341gms)
[2019-08-08] MEDS ORDERED: ACETAMINOPHEN 325 MG TAB PO PRN (16:14)
[2019-08-08] MEDS ORDERED: PROMETHAZINE 25 MG RECT SUPP PR PRN (16:14)
[2019-08-08] MEDS ORDERED: ONDANSETRON 4 MG/2 ML INJ IV PRN (16:14)
[2019-08-08] MEDS ORDERED: PROMETHAZINE 25 MG TAB PO PRN (16:14)
[2019-08-08] MEDS ORDERED: LANOLIN/ZINC/DIMETHICONE (LANSINOH) 7 GM TP PRN (16:14)
[2019-08-08] MEDS ORDERED: WITCH HAZEL/ GLYCERIN PAD TP PRN (16:14)
[2019-08-08] MEDS ORDERED: diphenhydrAMINE 25 MG CAP PO PRN (16:14)
[2019-08-08] MEDS ORDERED: MAGNESIUM HYDROXIDE (MOM) ORAL LIQD UDC PO PRN (16:14)
[2019-08-08] MEDS: FERROUS SULFATE 325 MG TAB PO SCH (21:14)
[2019-08-08] MEDS: DOCUSATE SODIUM 100 MG CAP PO SCH (21:14)
[2019-08-08] MEDS: HYDROcodone/ACETAMINOPHEN 5-325 MG TAB PO PRN (21:15)
[2019-08-09] MEDS: IBUPROFEN 600 MG TAB PO SCH ×3 (01:13→16:29)
[2019-08-09 05:02] LABS: Hematocrit 24.4 % (30.3-42.9); Hemoglobin 8.2 gm/dl (10.1-14.3)
[2019-08-09] MEDS: DOCUSATE SODIUM 100 MG CAP PO SCH ×2 (10:26→21:02)
[2019-08-09] MEDS: FERROUS SULFATE 325 MG TAB PO SCH ×2 (10:26→21:02)
[2019-08-09] MEDS: PRENATAL VIT27-FE FUMARATE-FOLIC ACID VIT TAB PO SCH (10:26)
--- NOTE | 2019-08-09 11:11 | Progress Note ---
Assessment and Plan - Patient Problems (1) 37 weeks gestation of Onset Date: 08/08/19 Current Visit: Yes Status: Resolved (2) Previous section Onset Date: 08/08/19 Current Visit: Yes Status: Resolved (3) , delivered Onset Date: 08/09/19 Current Visit: Yes Status: Resolved Plan to address problem: A: S/P - PPD #1 Doing well Asymptomatic anemia - stable P: May go home tomorrow. Subjective - Subjective Date of service: 08/09/19 Principal diagnosis: s/p - PPD #1 Interval history: Pt is feeling well without complaints. Bleeding improved. Patient reports: appetite normal, voiding normally, pain well controlled, flatus, ambulating normally, no dizzy ambulation, no nauseated : doing well, nursing well Objective - Vital Signs Latest vital signs: Vital Signs Temp Pulse Resp BP BP Pulse Ox 08/09/19 07:17 98.2 F 61 16 110/67 97 08/09/19 06:10 18 08/09/19 05:44 97.9 F 67 20 116/70 97 08/09/19 02:13 18 08/09/19 01:13 18 08/08/19 23:46 98.0 F 64 20 126/83 99 08/08/19 22:15 18 08/08/19 21:15 18 08/08/19 20:25 98.3 F 69 18 122/80 100 08/08/19 18:00 98.1 F 08/08/19 17:49 50 L 136/77 08/08/19 16:47 61 126/86 08/08/19 16:42 53 L 114/65 08/08/19 16:31 97.0 F L 08/08/19 16:26 74 107/59 08/08/19 16:19 80 121/58 08/08/19 16:13 67 123/64 08/08/19 15:27 76 139/78 08/08/19 15:18 82 147/79 08/08/19 15:14 72 142/69 08/08/19 15:11 71 149/79 08/08/19 15:08 81 145/65 08/08/19 15:05 78 176/77 08/08/19 14:59 90 169/70 08/08/19 14:13 71 116/74 08/08/19 13:53 71 130/74 08/08/19 11:12 98.3 F 16 Intake and Output 08/08/19 08/09/19 08/09/19 22:59 06:59 14:59 Intake Total 360 120 Output Total 250 Balance -250 360 120 Intake: Oral 360 120 Output: Urine 250 Void 250 Other: Total, Intake Amount 120 120 Total, Output Amount 250 # Voids Void 2 1 1 Estimated Blood Loss 300 - Exam Breasts: Present: deferred Abdomen: Present: normal appearance, soft Uterus: Present: normal, firm, fundal height below umbilicus Extremities: Present: normal - Labs Labs: Abnormal lab results 08/08/19 08/09/19 Range/Units 11:09 03:53 RBC 3.33 L (3.65-5.03) M/mm3 Hgb 9.3 L 8.2 L (10.1-14.3) gm/dl Hct 28.0 L 24.4 L (30.3-42.9) % Laboratory Tests 08/08/19 08/08/19 08/08/19 11:09 11:09 11:09 WBC 7.9 RBC 3.33 L Hgb 9.3 L Hct 28.0 L MCV 84 MCH 28 MCHC 33 RDW 14.8 Plt Count 244 Urine Opiates Screen Urine Methadone Screen Ur Barbiturates Screen Ur Phencyclidine Scrn Ur Amphetamines Screen U Benzodiazepines Scrn Urine Cocaine Screen U Marijuana (THC) Screen Drugs of Abuse Note Syphilis IgG Antibody Hep Bs Antigen Non-reactive HIV 1&2 Antibody Rapid HIV P24 Antigen Rubella IgG Antibody Immune Blood Type Antibody Screen 08/08/19 08/08/19 08/08/19 11:09 11:09 12:00 WBC RBC Hgb Hct MCV MCH MCHC RDW Plt Count Urine Opiates Screen Presumptive negative Urine Methadone Screen Presumptive negative Ur Barbiturates Screen Presumptive negative Ur Phencyclidine Scrn Presumptive negative Ur Amphetamines Screen Presumptive negative U Benzodiazepines Scrn Presumptive negative Urine Cocaine Screen Presumptive negative U Marijuana (THC) Screen Presumptive positive Drugs of Abuse Note Disclamer Syphilis IgG Antibody Hep Bs Antigen HIV 1&2 Antibody Rapid Non react HIV P24 Antigen Non react Rubella IgG Antibody Blood Type O POSITIVE Antibody Screen Negative 08/08/19 08/09/19 20:45 03:53 WBC RBC Hgb 8.2 L Hct 24.4 L MCV MCH MCHC RDW Plt Count Urine Opiates Screen Urine Methadone Screen Ur Barbiturates Screen Ur Phencyclidine Scrn Ur Amphetamines Screen U Benzodiazepines Scrn Urine Cocaine Screen U Marijuana (THC) Screen Drugs of Abuse Note Syphilis IgG Antibody Non-reactive Hep Bs Antigen HIV 1&2 Antibody Rapid HIV P24 Antigen Rubella IgG Antibody Blood Type Antibody Screen
--- NOTE | 2019-08-09 11:42 | Discharge Summary ---
Providers - Providers Date of Admission: 08/08/19 10:30 Date of discharge: 08/10/19 Attending physician: FERNY DIOR 08/09/19 08:00 Consult to Case Management [CONS] Routine Services Needed at Discharge: Linen Room Worker Notified:: n/a Primary care physician: ANALYTICAL STRATEGIST Hospitalization Reason for admission: active labor, IUP at term, other (Previous C Section) Delivery: Episiotomy: none Laceration: none Other procedures: none complications: none Discharge diagnosis: IUP at term delivered baby: female Hospital course: Unremarkable. Condition at discharge: Good Disposition: DC-01 TO HOME OR SELFCARE - Discharge Diagnoses (1) 37 weeks gestation of Status: Resolved (2) Previous section Status: Resolved (3) , delivered Status: Resolved Plan - Discharge Medications Prescriptions: Ferrous Sulfate [Feosol 325 MG tab] 325 mg PO BID #60 tablet Ibuprofen [Motrin 600 MG tab] 600 mg PO Q6H #30 tablet Vit-Fe Fumar-FA [ Vitamin] 1 each PO QDAY #30 tablet - Provider Discharge Summary Activity: routine, no sex for 6 weeks, no heavy lifting 4 weeks, no strenuous exercise Diet: routine Instructions: routine Additional instructions: [] Smoking cessation referral if applicable(refer to patient education folder for contact #) [] Refer to [facility]'s [facility] Booklet Call your doctor immediately for: * Fever > 100.5 * Heavy vaginal bleeding ( >1 pad per hour) * Severe persistent headache * Shortness of breath * Reddened, hot, painful area to leg or breast * Drainage or odor from incision. * Keep incision clean and dry at all times and follow doctor's instructions regarding bathing/showering - Follow up plan Follow up: ELIZABETH PAULINO MD [Primary Care Provider] - 6 Weeks FERNY DIOR MD [Staff Physician] - 6 Weeks
[2019-08-09] MEDS ORDERED: MEASLES, MUMPS & RUBELLA 12,500 UNIT/0.5 ML VACCINE SUB-Q ONE (16:14)
[2019-08-09] MEDS ORDERED: TETANUS,DIPH,PERTUSS(ACELL) VACCINE 0.5 ML SYRINGE IM ONE (16:14)
--- NOTE | 2019-08-09 19:16 | Post Anesthesia Evaluation ---
- Post Anesthesia Evaluation Patient Participated: Yes Airway Patent: Yes Stable Respiratory Function: Yes Nausea/Vomiting: No Temp > 96.8F: Yes Pain Manageable: Yes Adequeate Hydration: Yes Anesthesia Complications: No Block Receding Appropriately: Yes
[2019-08-09] MEDS: HYDROcodone/ACETAMINOPHEN 5-325 MG TAB PO PRN (21:01)
[2019-08-09] MEDS: OSELTAMIVIR 75 MG CAP PO SCH (21:01)
[2019-08-09] MEDS ORDERED: BENZOCAINE/MENTHOL 20/0.5% TOP SPRAY 56 GM TP PRN (23:36)
[2019-08-09] MEDS ORDERED: WITCH HAZEL/ GLYCERIN PAD TP PRN (23:39)
[2019-08-10] MEDS: IBUPROFEN 600 MG TAB PO SCH ×2 (00:13→04:57)
[2019-08-10] MEDS: PRENATAL VIT27-FE FUMARATE-FOLIC ACID VIT TAB PO SCH (09:32)
[2019-08-10] MEDS: FERROUS SULFATE 325 MG TAB PO SCH (09:32)
[2019-08-10] MEDS: OSELTAMIVIR 75 MG CAP PO SCH (09:32)
[2019-08-10] MEDS: DOCUSATE SODIUM 100 MG CAP PO SCH (09:32)
[2019-08-10 15:30] VITALS: BP 139/84
== END 2019-08-10 15:34 | disposition home or self-care (01) | DRG 806 ==
LOC: TRG 10:19 → LD 10:30 → OB 20:09
PROVIDERS: ADMIT Obstetrics & Gynecology; ATTEND Obstetrics & Gynecology
PROC: 10E0XZZ Delivery of Products of Conception, External Approach (ICD-10-PCS; principal; 2019-08-08)
PROC: 3E0R3BZ Introduction of Anesthetic Agent into Spinal Canal, Percutaneous Approach (ICD-10-PCS; 2019-08-08)
PROC: 00HU33Z Insertion of Infusion Device into Spinal Canal, Percutaneous Approach (ICD-10-PCS; 2019-08-08)
PROC: 3E0234Z Introduction of Serum, Toxoid and Vaccine into Muscle, Percutaneous Approach (ICD-10-PCS; 2019-08-09)
PROC: 3E0134Z Introduction of Serum, Toxoid and Vaccine into Subcutaneous Tissue, Percutaneous Approach (ICD-10-PCS; 2019-08-09)
DX: O76 Abnormality in fetal heart rate and rhythm complicating labor and delivery (principal); O99.324 Drug use complicating childbirth; Z37.0 Single live birth; O34.211 Maternal care for low transverse scar from previous cesarean delivery; O69.81X0 Labor and delivery complicated by cord around neck, without compression, not applicable or unspecified; F12.90 Cannabis use, unspecified, uncomplicated; O99.02 Anemia complicating childbirth; Z3A.37 37 weeks gestation of pregnancy; Z23 Encounter for immunization; Z79.899 Other long term (current) drug therapy
CPT/HCPCS: 36415; 80307; 85014; 85018; 85027; 86592; 86706; 86762; 86850; 86900; 86901; 87086; 87806; G0378; J0290; J0690; J2590; J2765; J3010; J3490; J7120

== ENCOUNTER 2019-12-22 17:54 | Emergency (ER) | payer SELFPAY ==
[2019-12-22 18:39] LABS: Basophils # (Auto) 0.1 K/mm3 (0.0-0.1); Basophils % (Auto) 0.9 % (0.0-1.8); Eosinophils # (Auto) 0.1 K/mm3 (0.0-0.4); Eosinophils % (Auto) 1.3 % (0.0-4.3); Hematocrit 36.7 % (30.3-42.9); Hemoglobin 12.3 gm/dl (10.1-14.3); Lymphocytes # (Auto) 2.5 K/mm3 (1.2-5.4); Lymphocytes % (Auto) 30.4 % (13.4-35.0); Mean Corpuscular HGB Conc 33 % (30-34); Mean Corpuscular Volume 84 fl (79-97); Monocytes # (Auto) 0.9 K/mm3 (0.0-0.8); Monocytes % (Auto) 10.5 % (0.0-7.3); Platelet Count 236 K/mm3 (140-440); Red Blood Count 4.37 M/mm3 (3.65-5.03); Red Cell Distribution Width 16.1 % (13.2-15.2)
[2019-12-22] MEDS ORDERED: SODIUM CHLORIDE 0.9% 1000 ML 1,000 ML IV ONE (18:40)
--- NOTE | 2019-12-22 18:47 | Emergency Department Report ---
<CEDRIC CHAPMANVIGNESH Delong - Last Filed: 12/23/19 02:09> ED Altered Mental Status HPI - General Chief Complaint: Altered Mental Status Stated Complaint: AMS Time Seen by Provider: 12/22/19 18:09 Source: patient Mode of arrival: Ambulatory Limitations: Altered Mental Status - History of Present Illness Initial Comments: 24-year-old female brought into ED by her boyfriend for altered mental status. Boyfriend states patient got into some bad drugs. Patient reports she smoked marijuana prior to arrival denies any other drug use. MD Complaint: altered mental status, intoxication -: This evening Severity: moderate Consistency of Symptoms: constant Context: drug abuse Associated Symptoms: denies other symptoms - Related Data Previous Rx's Medication Instructions Recorded Last Taken Type Vit No.130/Iron/Folic 1 each PO QDAY #30 tablet 02/06/17 08/06/19 Rx [ Tablet] Acetaminophen 325 mg PO Q4-6H #30 tablet 05/31/17 Unknown Rx Ibuprofen [Motrin] 800 mg PO Q8HR PRN #20 tablet 08/01/17 Unknown Rx oxyCODONE /ACETAMINOPHEN [Percocet 1 tab PO Q6HR PRN #14 tablet 08/01/17 Unknown Rx 5/325] Ferrous Sulfate [Feosol 325 MG tab] 325 mg PO BID #60 tablet 08/09/19 Unknown Rx Ibuprofen [Motrin 600 MG tab] 600 mg PO Q6H #30 tablet 08/09/19 Unknown Rx Vit-Fe Fumar-FA [ 1 each PO QDAY #30 tablet 08/09/19 Unknown Rx Vitamin] Sulfamethoxazole/Trimethoprim 1 each PO BID 10 Days #20 tablet 12/23/19 Unknown Rx [Bactrim DS TAB] Allergies Allergy/AdvReac Type Severity Reaction Status Date / Time No Known Allergies Allergy Verified 02/06/17 12:05 ED Review of Systems Comment: All other systems reviewed and negative Cardiovascular: denies: chest pain Neurological: denies: headache ED Past Medical Hx - Past Medical History Hx Hypertension: No Hx Congestive Heart Failure: No Hx Diabetes: No Hx Deep Vein Thrombosis: No Hx Renal Disease: No Hx Sickle Cell Disease: No Hx Seizures: No Hx Asthma: No Hx COPD: No Hx HIV: No - Social History Smoking Status: Light Tobacco Smoker Substance Use Type: Alcohol, Marijuana - Medications Home Medications: Home Medications Medication Instructions Recorded Confirmed Last Taken Type Vit No.130/Iron/Folic 1 each PO QDAY #30 tablet 02/06/17 08/10/19 08/06/19 Rx [ Tablet] Acetaminophen 325 mg PO Q4-6H #30 tablet 05/31/17 08/10/19 Unknown Rx Ibuprofen [Motrin] 800 mg PO Q8HR PRN #20 tablet 08/01/17 08/10/19 Unknown Rx oxyCODONE /ACETAMINOPHEN [Percocet 1 tab PO Q6HR PRN #14 tablet 08/01/17 08/10/19 Unknown Rx 5/325] Ferrous Sulfate [Feosol 325 MG tab] 325 mg PO BID #60 tablet 08/09/19 Unknown Rx Ibuprofen [Motrin 600 MG tab] 600 mg PO Q6H #30 tablet 08/09/19 Unknown Rx Vit-Fe Fumar-FA [ 1 each PO QDAY #30 tablet 08/09/19 Unknown Rx Vitamin] Sulfamethoxazole/Trimethoprim 1 each PO BID 10 Days #20 tablet 12/23/19 Unknown Rx [Bactrim DS TAB] ED Physical Exam - General Limitations: Altered Mental Status General appearance: alert, appears intoxicated - Head Head exam: Present: atraumatic, normocephalic - Eye Eye exam: Present: normal appearance, EOMI - ENT ENT exam: Present: mucous membranes moist - Neck Neck exam: Present: normal inspection - Respiratory Respiratory exam: Present: normal lung sounds bilaterally. Absent: respiratory distress - Cardiovascular Cardiovascular Exam: Present: regular rate, normal rhythm - GI/Abdominal GI/Abdominal exam: Present: soft. Absent: distended, tenderness - Extremities Exam Extremities exam: Present: normal inspection - Neurological Exam Neurological exam: Present: alert, altered, other (moves all extremities) - Psychiatric Psychiatric exam: Present: normal affect, normal mood - Skin Skin exam: Present: warm, dry, intact, normal color - Lab Data Result diagrams: 12/22/19 18:21 12/22/19 18:21 - EKG Data -: EKG Interpreted by Me EKG shows normal: sinus rhythm, axis, intervals, QRS complexes, ST-T waves Rate: normal Interpretation: no acute changes - Medical Decision Making 24 yo F presents to ED with drug intoxication. Drug screen positive for marijua na and amphetamines. Pt required geodon and ativan here in the ED due to agitation. Labs are unremarkable. CT Head is currently pending. Pt will be signed out to Dr Collier to f/u on CT and discharge when sober. - Differential Diagnosis drug abuse ED Disposition Clinical Impression: Drug use Altered mental state Qualifiers: Altered mental status type: unspecified Qualified Code(s): R41.82 - Altered mental status, unspecified UTI (urinary tract infection) Qualifiers: Urinary tract infection type: acute cystitis Hematuria presence: with hematuria Qualified Code(s): N30.01 - Acute cystitis with hematuria Amphetamine intoxication Qualifiers: Complication of substance-induced condition: with unspecified complication Qualified Code(s): F15.929 - Other stimulant use, unspecified with intoxication, unspecified Marijuana intoxication Qualifiers: Complication of substance-induced condition: with unspecified complication Qualified Code(s): F12.929 - Cannabis use, unspecified with intoxication, unspecified Disposition: DC- TO HOME OR SELFCARE Condition: Stable Instructions: Methamphetamine Abuse (ED), Cannabis Abuse (ED), Urinary Tract Infection in Women (ED) Additional Instructions: Patient to follow-up with primary care in 2 to 3 days. Patient to avoid drug and alcohol use. Patient to rest. Patient to increase water. Patient to take Tylenol or ibuprofen as needed for pain. Patient to take meds as directed. Patient to return to the ER if condition worsens, changes or new symptoms arise. Prescriptions: Sulfamethoxazole/Trimethoprim [Bactrim DS TAB] 1 each PO BID 10 Days #20 tablet Referrals: PRIMARY CARE, [Primary Care Provider] - 2-3 Days <JUDIT COLLIER III - Last Filed: 12/23/19 05:46> ED Review of Systems ROS: Stated complaint: AMS Other details as noted in HPI ED Course Vital Signs 12/22/19 12/22/19 12/22/19 18:04 18:09 18:25 Temperature 97.4 F L Pulse Rate 79 74 Respiratory 22 18 19 Rate Blood Pressure 188/115 Blood Pressure [Left] O2 Sat by Pulse 99 99 Oximetry 12/22/19 12/22/19 12/22/19 18:30 18:46 20:29 Temperature Pulse Rate 77 71 Respiratory 25 H 15 Rate Blood Pressure Blood Pressure [Left] O2 Sat by Pulse 100 100 78 L Oximetry 12/22/19 12/22/19 12/22/19 20:31 20:48 20:56 Temperature 97.5 F L Pulse Rate 68 69 Respiratory 12 14 Rate Blood Pressure Blood Pressure 168/99 [Left] O2 Sat by Pulse 92 100 96 Oximetry 12/22/19 12/22/19 12/22/19 21:00 21:33 21:45 Temperature Pulse Rate 70 Respiratory 12 Rate Blood Pressure 168/99 168/99 168/99 Blood Pressure [Left] O2 Sat by Pulse 87 Oximetry 12/22/19 12/22/19 12/22/19 22:00 22:16 22:31 Temperature Pulse Rate Respiratory Rate Blood Pressure 196/116 159/131 183/159 Blood Pressure [Left] O2 Sat by Pulse Oximetry 12/22/19 12/23/19 12/23/19 23:29 00:01 00:27 Temperature Pulse Rate Respiratory Rate Blood Pressure 183/159 183/159 183/159 Blood Pressure [Left] O2 Sat by Pulse Oximetry 12/23/19 12/23/19 12/23/19 02:30 02:45 03:00 Temperature Pulse Rate Respiratory Rate Blood Pressure 151/98 144/91 144/91 Blood Pressure [Left] O2 Sat by Pulse 100 99 100 Oximetry 12/23/19 03:15 Temperature Pulse Rate Respiratory Rate Blood Pressure 142/91 Blood Pressure [Left] O2 Sat by Pulse 98 Oximetry - Reevaluation(s) Reevaluation #1: Patient's head CT is negative. Patient is answering questions appropriately. Patient is ambulatory in the ER. Patient is ready for discharge. Patient is alert and oriented x4. I discussed all results and clinical findings with patient. I discussed plan of care with patient. Patient agrees with plan of care. Patient is stable for discharge. Patient will be discharged home. Patient given discharge instructions. Patient voiced understanding of discharge instructions. 12/23/19 05:42 - Lab Data Result diagrams: 12/22/19 18:21 12/22/19 18:21 Lab Results 12/22/19 12/22/19 12/22/19 Range/Units 18:21 18:21 18:21 WBC 8.3 (4.5-11.0) K/mm3 RBC 4.37 (3.65-5.03) M/mm3 Hgb 12.3 (10.1-14.3) gm/dl Hct 36.7 (30.3-42.9) % MCV 84 (79-97) fl MCH 28 (28-32) pg MCHC 33 (30-34) % RDW 16.1 H (13.2-15.2) % Plt Count 236 (140-440) K/mm3 Lymph % (Auto) 30.4 (13.4-35.0) % Becker % (Auto) 10.5 H (0.0-7.3) % Eos % (Auto) 1.3 (0.0-4.3) % Baso % (Auto) 0.9 (0.0-1.8) % Lymph # 2.5 (1.2-5.4) K/mm3 Becker # 0.9 H (0.0-0.8) K/mm3 Eos # 0.1 (0.0-0.4) K/mm3 Baso # 0.1 (0.0-0.1) K/mm3 Seg Neutrophils % 56.9 (40.0-70.0) % Seg Neutrophils # 4.7 (1.8-7.7) K/mm3 Sodium 139 (137-145) mmol/L Potassium 3.4 L (3.6-5.0) mmol/L Chloride 101.2 (98-107) mmol/L Carbon Dioxide 22 (22-30) mmol/L Anion Gap 19 mmol/L BUN 7 (7-17) mg/dL Creatinine 0.6 L (0.7-1.2) mg/dL Estimated GFR > 60 ml/min BUN/Creatinine Ratio 12 % Glucose 111 H (65-100) mg/dL Calcium 9.6 (8.4-10.2) mg/dL Total Bilirubin 0.30 (0.1-1.2) mg/dL Direct Bilirubin < 0.2 (0-0.2) mg/dL Indirect Bilirubin 0.1 mg/dL AST 16 (5-40) units/L ALT 9 (7-56) units/L Alkaline Phosphatase 102 (35-129) units/L Total Protein 8.5 H (6.3-8.2) g/dL Albumin 4.3 (3.9-5) g/dL Albumin/Globulin Ratio 1.0 % HCG, Qual (Negative) Urine Color (Yellow) Urine Turbidity (Clear) Urine pH (5.0-7.0) Ur Specific [place] (1.003-1.030) Urine Protein (Negative) mg/dL Urine Glucose (UA) (Negative) mg/dL Urine Ketones (Negative) mg/dL Urine Blood (Negative) Urine Nitrite (Negative) Urine Bilirubin (Negative) Urine Urobilinogen (<2.0) mg/dL Ur Leukocyte Esterase (Negative) Urine WBC (Auto) (0.0-6.0) /HPF Urine RBC (Auto) (0.0-6.0) /HPF U Epithel Cells (Auto) (0-13.0) /HPF Urine Mucus /HPF Salicylates < 0.3 L (2.8-20.0) mg/dL Urine Opiates Screen Urine Methadone Screen Acetaminophen (10.0-30.0) ug/mL Ur Barbiturates Screen Ur Phencyclidine Scrn Ur Amphetamines Screen U Benzodiazepines Scrn Urine Cocaine Screen U Marijuana (THC) Screen Drugs of Abuse Note Plasma/Serum Alcohol (0-0.07) % 12/22/19 12/22/19 12/22/19 Range/Units 18:21 18:21 18:21 WBC (4.5-11.0) K/mm3 RBC (3.65-5.03) M/mm3 Hgb (10.1-14.3) gm/dl Hct (30.3-42.9) % MCV (79-97) fl MCH (28-32) pg MCHC (30-34) % RDW (13.2-15.2) % Plt Count (140-440) K/mm3 Lymph % (Auto) (13.4-35.0) % Becker % (Auto) (0.0-7.3) % Eos % (Auto) (0.0-4.3) % Baso % (Auto) (0.0-1.8) % Lymph # (1.2-5.4) K/mm3 Becker # (0.0-0.8) K/mm3 Eos # (0.0-0.4) K/mm3 Baso # (0.0-0.1) K/mm3 Seg Neutrophils % (40.0-70.0) % Seg Neutrophils # (1.8-7.7) K/mm3 Sodium (137-145) mmol/L Potassium (3.6-5.0) mmol/L Chloride (98-107) mmol/L Carbon Dioxide (22-30) mmol/L Anion Gap mmol/L BUN (7-17) mg/dL Creatinine (0.7-1.2) mg/dL Estimated GFR ml/min BUN/Creatinine Ratio % Glucose (65-100) mg/dL Calcium (8.4-10.2) mg/dL Total Bilirubin (0.1-1.2) mg/dL Direct Bilirubin (0-0.2) mg/dL Indirect Bilirubin mg/dL AST (5-40) units/L ALT (7-56) units/L Alkaline Phosphatase (35-129) units/L Total Protein (6.3-8.2) g/dL Albumin (3.9-5) g/dL Albumin/Globulin Ratio % HCG, Qual Negative (Negative) Urine Color (Yellow) Urine Turbidity (Clear) Urine pH (5.0-7.0) Ur Specific [place] (1.003-1.030) Urine Protein (Negative) mg/dL Urine Glucose (UA) (Negative) mg/dL Urine Ketones (Negative) mg/dL Urine Blood (Negative) Urine Nitrite (Negative) Urine Bilirubin (Negative) Urine Urobilinogen (<2.0) mg/dL Ur Leukocyte Esterase (Negative) Urine WBC (Auto) (0.0-6.0) /HPF Urine RBC (Auto) (0.0-6.0) /HPF U Epithel Cells (Auto) (0-13.0) /HPF Urine Mucus /HPF Salicylates (2.8-20.0) mg/dL Urine Opiates Screen Urine Methadone Screen Acetaminophen < 5.0 L (10.0-30.0) ug/mL Ur Barbiturates Screen Ur Phencyclidine Scrn Ur Amphetamines Screen U Benzodiazepines Scrn Urine Cocaine Screen U Marijuana (THC) Screen Drugs of Abuse Note Plasma/Serum Alcohol < 0.01 (0-0.07) % 12/22/19 12/22/19 Range/Units 18:44 18:44 WBC (4.5-11.0) K/mm3 RBC (3.65-5.03) M/mm3 Hgb (10.1-14.3) gm/dl Hct (30.3-42.9) % MCV (79-97) fl MCH (28-32) pg MCHC (30-34) % RDW (13.2-15.2) % Plt Count (140-440) K/mm3 Lymph % (Auto) (13.4-35.0) % Becker % (Auto) (0.0-7.3) % Eos % (Auto) (0.0-4.3) % Baso % (Auto) (0.0-1.8) % Lymph # (1.2-5.4) K/mm3 Becker # (0.0-0.8) K/mm3 Eos # (0.0-0.4) K/mm3 Baso # (0.0-0.1) K/mm3 Seg Neutrophils % (40.0-70.0) % Seg Neutrophils # (1.8-7.7) K/mm3 Sodium (137-145) mmol/L Potassium (3.6-5.0) mmol/L Chloride (98-107) mmol/L Carbon Dioxide (22-30) mmol/L Anion Gap mmol/L BUN (7-17) mg/dL Creatinine (0.7-1.2) mg/dL Estimated GFR ml/min BUN/Creatinine Ratio % Glucose (65-100) mg/dL Calcium (8.4-10.2) mg/dL Total Bilirubin (0.1-1.2) mg/dL Direct Bilirubin (0-0.2) mg/dL Indirect Bilirubin mg/dL AST (5-40) units/L ALT (7-56) units/L Alkaline Phosphatase (35-129) units/L Total Protein (6.3-8.2) g/dL Albumin (3.9-5) g/dL Albumin/Globulin Ratio % HCG, Qual (Negative) Urine Color Yellow (Yellow) Urine Turbidity Clear (Clear) Urine pH 8.0 H (5.0-7.0) Ur Specific [place] 1.015 (1.003-1.030) Urine Protein 30 mg/dl (Negative) mg/dL Urine Glucose (UA) Neg (Negative) mg/dL Urine Ketones Neg (Negative) mg/dL Urine Blood Mod (Negative) Urine Nitrite Neg (Negative) Urine Bilirubin Neg (Negative) Urine Urobilinogen 2.0 (<2.0) mg/dL Ur Leukocyte Esterase Neg (Negative) Urine WBC (Auto) 26.0 H (0.0-6.0) /HPF Urine RBC (Auto) 11.0 (0.0-6.0) /HPF U Epithel Cells (Auto) 2.0 (0-13.0) /HPF Urine Mucus Few /HPF Salicylates (2.8-20.0) mg/dL Urine Opiates Screen Presumptive negative Urine Methadone Screen Presumptive negative Acetaminophen (10.0-30.0) ug/mL Ur Barbiturates Screen Presumptive negative Ur Phencyclidine Scrn Presumptive negative Ur Amphetamines Screen Presumptive positive U Benzodiazepines Scrn Presumptive negative Urine Cocaine Screen Presumptive negative U Marijuana (THC) Screen Presumptive positive Drugs of Abuse Note Disclamer Plasma/Serum Alcohol (0-0.07) % Critical care attestation.: If time is entered above; I have spent that time in minutes in the direct care of this critically ill patient, excluding procedure time. ED Disposition Is pt being admited?: No Does the pt Need Aspirin: No Time of Disposition: 05:45
[2019-12-22 18:59] LABS: Alanine Aminotransferase 9 units/L (7-56); Albumin 4.3 g/dL (3.9-5); BUN/Creatinine Ratio 12; Blood Urea Nitrogen 7 mg/dL (7-17); Calcium 9.6 mg/dL (8.4-10.2); Hemolysis Index 27
[2019-12-22 19:00] LABS: Bilirubin,Direct < 0.2 mg/dL (0-0.2)
[2019-12-22 19:03] LABS: Benzodiazepines Screen,Urine PRESUMPTIVE NEGATIVE; Cocaine Screen,Urine PRESUMPTIVE NEGATIVE; Methadone Screen,Urine PRESUMPTIVE NEGATIVE; Opiate Screen,Urine PRESUMPTIVE NEGATIVE
[2019-12-22 19:06] LABS: Bilirubin,Urine NEG (Negative); Blood,Urine MOD (Negative); Color,Urine Yellow (Yellow); Mucus,Urine FEW /HPF
[2019-12-22 19:15] LABS: Amphetamine Screen,Urine PRESUMPTIVE POSITIVE; Cannabinoid Screen,Urine PRESUMPTIVE POSITIVE
[2019-12-22] MEDS ORDERED: LORazepam 2 MG/ML VIAL IV ONE ×2 (19:58→22:32)
[2019-12-22] MEDS ORDERED: ZIPRASIDONE MESYLATE 20 MG VIAL IM ONE (23:22)
[2019-12-22] MEDS ORDERED: WATER FOR INJ Sterile (PF) 10 ML ONE (23:26)
[2019-12-22] MEDS: ZIPRASIDONE MESYLATE 20 MG VIAL IM PRN (23:35)
[2019-12-23] MEDS: ZIPRASIDONE MESYLATE 20 MG VIAL IM PRN (01:14)
--- NOTE | 2019-12-23 03:08 | Cat Scan Report ---
CT HEAD WITHOUT CONTRAST INDICATION / CLINICAL INFORMATION: Altered Mental Status. TECHNIQUE: All CT scans at this location are performed using CT dose reduction for ALARA by means of automated e xposure control. COMPARISON: None available. FINDINGS: HEMORRHAGE: No evidence of intracranial hemorrhage or extra-axial fluid collection. EXTRA-AXIAL SPACES: Cortical sulci, sylvian fissures and basilar cisterns have an unremarkable appear ance. VENTRICULAR SYSTEM: The ventricular system is of normal size and configuration. CEREBRAL PARENCHYMA: No areas of abnormal brain parenchymal attenuation are identified. There is no i ndication of recent infarction. MIDLINE SHIFT OR HERNIATION: There is no mass effect. CEREBELLUM / BRAINSTEM: Brainstem and cerebellum have an unremarkable appearance. MIDLINE STRUCTURES:No abnormalities of the pituitary gland or pineal region are identified. INTRACRANIAL VESSELS:No abnormalities are identified on this noncontrast head CT. ORBITS: visualized portions of the orbits have an unremarkable appearance. SOFT TISSUES of HEAD: No significant abnormality. CALVARIUM: Evaluation of bone windows reveals no abnormalities. PARANASAL SINUSES / MASTOID AIR CELLS: Evaluation of the sinonasal cavity is remarkable for markedly expansile, irregularly calcified lesion involving right maxillary sinus right nasal cavity, right-grayson ed ethmoid air cells and sphenoid sinuses bilaterally. There is bone expansion and bony remodeling wi thout janett bone destruction. There is lateral displacement of the right lamina papyracea with compre ssion of the orbital contents on the right. 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 This complex le lew is incompletely evaluated on head CT. Further evaluation with CT sinonasal cavity is advised. EN T surgical consultation is advised. Extensive ADDITIONAL FINDINGS: None. IMPRESSION: 1. No acute intracranial abnormality. 2. 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 Further evaluation with CT sin onasal cavity is advised. Anterior surgical consultation is recommended. Signer Name: To Cole MD Signed: 12/23/2019 3:04 AM Workstation Name: [id number]
[2019-12-23 03:27] VITALS: BP 142/91
== END 2019-12-23 06:00 | disposition home or self-care (01) ==
LOC: ED 17:54
DX: R41.82 Altered mental status, unspecified (principal); N39.0 Urinary tract infection, site not specified; F15.129 Other stimulant abuse with intoxication, unspecified; F12.929 Cannabis use, unspecified with intoxication, unspecified; Z79.1 Long term (current) use of non-steroidal anti-inflammatories (NSAID); Z79.899 Other long term (current) drug therapy
CPT/HCPCS: 36415; 70450; 80048; 80076; 80307; 81001; 84703; 85025; 87086; 93005; 96361; 96372; 96374; 96376; 99284; J2060; J3486; 80320; 82962; G0480